=== PATIENT | female | born 1990 | race Two or more races ===

== ENCOUNTER 2020-03-16 17:52 | Emergency (ER) | payer OTHER ==
[~2020-03-16] VITALS: Ht 165.1 cm; Wt 47.6 kg
[2020-03-16 18:00] VITALS: BP 100/79
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
[2020-03-16] MEDS ORDERED: LIDODERM700 M1 TOPIC (19:01)
[2020-03-16] MEDS ORDERED: IBUPROFEN600 M1 ORAL (19:01)
[2020-03-16] MEDS ORDERED: ROBAXIN-500MG ORAL (19:01)
[2020-03-16 19:40] VITALS: BP 100/79
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
== END 2020-03-16 19:40 | disposition home or self-care (01) ==
LOC: EMR 18:05
DX: S16.1XXA Strain of muscle, fascia and tendon at neck level, initial encounter (principal); S00.93XA Contusion of unspecified part of head, initial encounter; M25.562 Pain in left knee; M25.561 Pain in right knee
CPT/HCPCS: 70450; 72125; 73560; Z7502; 99284